=== PATIENT | female | born 1980 | race Caucasian/White ===

== ENCOUNTER 2022-06-19 06:00 | Day surgery (SDC) | payer OTHER ==
[~2022-06-19] VITALS: Ht 172.7 cm; Wt 65.9 kg
--- NOTE | 2022-06-19 09:18 | NUR ---
06/19/22 0918 Annette Osullivan 0913 PATIENT ARRIVES TO PACU UNRESPONSIVE TO PAIN, ORAL AIRWAY IN PLACE. RESP EVEN AND UNLABORED WITH INTERVENTION, ROOM AIR SATS >95%.
[2022-06-19] MEDS ORDERED: OXYCODON-ACETA1 EAC2 PO (09:52)
[2022-06-19] MEDS ORDERED: IBUPROFEN600 MG PO (09:52)
[2022-06-19] MEDS ORDERED: ACETAMINOPHEN500 MG PO (09:52)
--- NOTE | 2022-06-19 10:11 | NUR ---
PATIENT BACK IN DAY SURGERY ROOM FROM PACU. DENIES PAIN. DENIES NAUSEA. VS CHECKED. IV SITE WNL. TAKING SIPS OF WATER. ABDOMINAL LAP SITES X 4 WITH STERI STRIPS. SCANT AMOUNT OF DRAINAGE AT LAP SITES. SCDs ON. CALL LIGHT WITHIN REACH. AT BEDSIDE.
--- NOTE | 2022-06-19 10:30 | NUR ---
PT ALERT, ORIENTED AND SUPPORTED BY HER JESSEE. ALL QUESTIONS ASKED ANSWERED. JESSEE WILL REMAIN FOR DC, PT REQUESTED PRAYER. WILL FOLLOW
--- NOTE | 2022-06-19 11:52 | NUR ---
PATIENT ASSISTED OOB AND TO BATHROOM. GAIT STEADY. VOID WITHOUT DIFFICULTY. GAIT STEADY BACK TO ROOM. PATIENT BACK IN BED RESTING. CALL LIGHT WITHIN REACH. AT BEDSIDE.
--- NOTE | 2022-06-19 12:43 | NUR ---
1225-PATIENT ACCIDENTLY PULLED OUT IV WHEN GETTING DRESSED. IV TIP WNL. GAUZE AND COBAN USED AT SITE.
--- NOTE | 2022-06-19 12:44 | NUR ---
1235-PROVIDED PATIENT AND WIHT DISCHARGE INSTRUCTIONS. ALL QUESTIONS ANSWERED. PATIENT WENT TO PUT ON SHOES AND FELT NAUSEOUS. PATIENT LAID BACK ON BED. 1240-VO PER DR. HUFFMAN FOR ZOFRAN ODT 8MG NOW. DEMETRICE PUT IN COMPUTER.
--- NOTE | 2022-06-19 15:15 | NUR ---
1255: PATIENT STATES NAUSEA IMPROVING WITH REST. MEDICATED FOR NAUSEA WITH ZOFRAN ODT. PATIENT STATES READY TO GO HOME. PATIENT DISCHARGED TO HOME VIA WHEELCHAIR WITH .
--- NOTE | 2022-06-25 16:53 | OR ---
[facility] [address], [place] [address] Signed DATE OF OPERATION: 06/19/2022 SURGEON: Ben Huffman MD PREOPERATIVE DIAGNOSIS: Chronic calculous cholecystitis. POSTOPERATIVE DIAGNOSES: 1. Chronic calculous cholecystitis. 2. White bile (indicative of obstructed cystic duct). PROCEDURES: 1. Laparoscopic cholecystectomy with intraoperative cholangiogram. 2. Attempted (failed intraoperative cholangiogram). ANESTHESIA: General endotracheal, Tex Gorman CRNA and local 10 mL of 0.25% Marcaine with epinephrine. INDICATIONS: This 41-year-old white woman is a patient of Dr. Monterroso. She was seen on a semi-urgent walk-in basis on May 22 with symptoms highly suggestive of biliary disease. Her episodic right upper abdominal pain is in a band like configuration in the upper abdomen, occasionally associated with nausea and vomiting. She had subscapular pain on the right side as well. Her initial episode was in March. She has had a similar episode a month later. She underwent a gallbladder ultrasound on May 13, 2022, showing gallbladder with layering sludge and echogenic shadowing gallstones. She was offered operation promptly, but she had other plans and did not wish to do it until this time. She is admitted at this time to undergo cholecystectomy preferred by laparoscopic approach, understanding the risks of bleeding, infection, bile duct injury, and need for other indicated procedures; understanding this she wished to proceed. FINDINGS: The gallbladder was quite thick and leathery and chronically inflamed, it required decompression. Decompressed bile was found to be completely colorless (clear) also known as "white bile," indicative of obstruction of the outlet of the gallbladder. An attempt at cholangiogram was made, but the infusion of the intramural cystic duct did not allow for reasonable visualization of biliary tree and further dissection of the duct to provide cholangiogram was deemed inadvisable given its length and chronic inflammatory changes in the infundibular area that would put hazard to the common Electronically Signed By: BEN HUFFMAN MD 06/25/22 1653 PATIENT NAME: PARAMJIT POWER OPERATIVE REPORT DATE OF : 82 REPORT #: [id number] PHYSICIAN: BEN HUFFMAN MD PCP: SHIRLEY MONTERROSO MD REPORT IS CONFIDENTIAL AND NOT TO BE RELEASED WITHOUT AUTHORIZATION [facility] [address] [place] [id number] Signed hepatic duct and right hepatic duct, which was somewhat extra hepatic. On that basis, cholangiogram was not completed. The liver itself was normal. There were no other intraabdominal findings of concern. DESCRIPTION OF PROCEDURE: The patient was brought to the operating room, given a general endotracheal anesthetic. Preoperative antibiotic Ancef was given. Sequential compression device stockings used and heparin subcutaneously administered. The abdomen was prepared with a chlorhexidine solution and draped sterilely. An infraumbilical incision was made and using an open Sylwia cannula technique, pneumoperitoneum achieved to a level of 14 mmHg. The pneumoperitoneum was decreased to 10 mmHg when the patient had some bradycardia associated with distention of the abdomen. Atropine was given by the hospice superintendent and there were no further episodes of bradycardia. Intraabdominal inspection undertaken, showed no sign of ascites or carcinomatosis. A dull pink thickened gallbladder, which was quite distended was noted. The liver itself was completely normal. Three additional trocars were placed in usual configuration in the subxiphoid, right midclavicular, and right anterior axillary line. Attempts at grasping the gallbladder were quite unsuccessful to the tenseness of the gallbladder and it is thick in nature. On that basis, a laparoscopic trocar device was used to decompress the gallbladder contents. This showed completely crystal clear bile consistent with "white bile" associated with obstruction of the gallbladder outlet. The puncture site was grasped, planned for elevation of the gallbladder. The infundibulum was dissected free with meticulous care. The chronic inflammatory nature of the infundibulum was well identified. A bulky stone in the lower part of the gallbladder was also quite obvious. With various maneuvers, the cystic duct and cystic arterial branches were identified. It appeared initially that she may have an extra-hepatic right hepatic duct. Care was taken to avoid any dissection that would be hazardous to that portion of biliary tree. Ultimately, the cystic duct was well defined from other structures and the cystic arterial branches as well. A clip applied across gallbladder cystic duct junction, but this caused there to be very little room in the cystic duct for adequate cystic duct choledochotomy. Since the gallbladder was extensively obstructed by the stone in any way, clip was removed and a transverse choledochotomy made in that area. Attempts at passage of a cholangiocatheter with the Gates type cholangiocatheter system were undertaken. The catheter appeared to be within the duct itself, but test infusion of saline caused dilation of the adventitial tissues of the cystic duct. The catheter was removed, cystic duct re-evaluated and given the relatively short nature of the cystic duct. In aggregate, it was deemed most advisable simply to forego the cholangiogram after all. The cystic duct was then triply clipped and divided, the gallbladder dissected free in a retrograde fashion. Clips were applied to the cystic artery branches as necessary. Mindful of the position of possible right hepatic duct system. Meticulous care was made in excising the gallbladder. The Electronically Signed By: BEN HUFFMAN MD 06/25/22 8561 PATIENT NAME: PARAMJIT POWER OPERATIVE REPORT DATE OF : 82 REPORT #: [id number] PHYSICIAN: BEN HUFFMAN MD PCP: SHIRLEY MONTERROSO MD REPORT IS CONFIDENTIAL AND NOT TO BE RELEASED WITHOUT AUTHORIZATION [facility] [address], [place] [address] Signed gallbladder was placed in an Endobag, and extracted through the infraumbilical port site, opened on the back table and found to have a pink mucosa essentially blanched white with two impacted 1 cm stones in the infundibulum. There was no evidence of neoplasm. Irrigation was undertaken with subhepatic space. There was no sign of bile leak, bleeding, or other problems. Excess irrigation, fluid was suctioned free. The trocars removed under direct visualization showing no sign of bleeding. The infraumbilical fascial incision was reapproximated with interrupted 0-Vicryl suture. A 10 mL of 0.25% Marcaine with epinephrine was injected locally. The skin was then closed and interrupted 3-0 Vicryl and Steri-Strips were applied. The patient was ultimately extubated and transferred to the recovery room in good condition, having suffering no complication. MD MARGI Ayala/WILLEM /[id number] cc: Shirley Monterroso M.D. Copies: ~ Electronically Signed By: BEN HUFFMAN MD 06/25/22 7883 PATIENT NAME: PARAMJIT POWER OPERATIVE REPORT DATE OF : 82 REPORT #: [id number] PHYSICIAN: BEN HUFFMAN MD PCP: SHIRLEY MONTERROSO MD REPORT IS CONFIDENTIAL AND NOT TO BE RELEASED WITHOUT AUTHORIZATION
--- NOTE | 2022-06-26 16:58 | PATH ---
[facility] [address] [place], [place] [address] Signed SPECIMEN(S): A GALLBLADDER WITH STONES SPECIMEN SOURCE: A. GALLBLADDER WITH STONES CLINICAL HISTORY: Chronic cholecystitis FINAL PATHOLOGIC DIAGNOSIS: Gallbladder, cholecystectomy: - Chronic cholecystitis. - Cholelithiasis. - No evidence of neoplasia. TWK:vladislav:[id number] MICROSCOPIC EXAMINATION: Histologic sections of all submitted blocks are examined by light microscopy. These findings, together with the gross examination, support the pathologic diagnosis. GROSS DESCRIPTION: The specimen, labeled and designated "Kristofer Power " and designated on the requisition "gallbladder with stones," is received in formalin and consists of Specimen: Previously opened gallbladder. Dimensions: 11.2 x 3.0 x 2.4 cm. Serosa: Brush and focally congested. Cystic Duct: Inked, unobstructed. Calculi: 2 pale yellow spherical stones, each measuring approximately 1.0 cm in greatest dimension. Mucosa: Brush and velvety. Wall thickness: 0.5 cm. Lymph node: No pericystic lymph nodes are grossly identified. Additional: None. Driver Material Handler sections are submitted in (A1). FB (under the direct supervision of a pathologist) The Gross Description was prepared using a voice recognition system. The report was reviewed for accuracy; however, sound-alike word errors, addition and/or deletions may occur. If there is any question about this report, please contact Client Services. PERFORMING LABORATORY: PATIENT NAME: PARAMJIT POWER JEANETH PATHOLOGY DATE OF : 82 REPORT #: [id number] PHYSICIAN: ROBY CARTWRIGHT PCP: PAPITO MONTERROSO MD REPORT IS CONFIDENTIAL AND NOT TO BE RELEASED WITHOUT AUTHORIZATION [address] [place] [address] Signed The technical component was performed by [facility], [address] [place] [id number] (CLIA# [id number]). The professional interpretation was performed by [facility], [facility], [facility] [address] [place] [id number] (CLIA#: [id number]). Diagnostician: Min Sauceda MD Pathologist Electronically Signed 06/26/2022 Copies: ~ PATIENT NAME: PARAMJIT POWER PATHOLOGY DATE OF : 82 REPORT #: [id number] PHYSICIAN: ROBY CARTWRIGHT PCP: PAPITO MONTERROSO MD REPORT IS CONFIDENTIAL AND NOT TO BE RELEASED WITHOUT AUTHORIZATION
== END 2022-06-19 12:55 | disposition home or self-care (01) ==
LOC: DS 06:00
PROVIDERS: ATTEND Surgery
PROC: 0FT44ZZ Resection of Gallbladder, Percutaneous Endoscopic Approach (ICD-10-PCS; principal; 2022-06-19 07:30)
DX: K80.10 Calculus of gallbladder with chronic cholecystitis without obstruction (principal); K83.8 Other specified diseases of biliary tract; Z86.79 Personal history of other diseases of the circulatory system; Z83.79 Family history of other diseases of the digestive system
CPT/HCPCS: 00790; A9270; J0461; J0690; J1100; J1170; J1644; J1885; J2001; J2250; J2405; J2704; J3010; J7121